=== PATIENT | female | born 1950 | race Caucasian/White ===

== ENCOUNTER 2017-11-15 03:04 | Outpatient (CLI) | payer BC, SELFPAY ==
[2017-11-15 08:41] LABS: ALT 55 U/L (12-78); AST 45 U/L (15-37); Albumin 3.5 g/dL (3.4-5.0); Alkaline Phosphatase 97 U/L (46-116); Anion Gap 6.3 mmol/L (3-11); BUN 10 mg/dL (7-18); Bilirubin, Total 0.5 mg/dL (0.2-1.0); CO2 31.7 mmol/L (21.0-32.0); CREATININE 0.85 mg/dL (0.55-1.02); Calcium 8.3 mg/dL (8.5-10.1); Chloride 106 mmol/L (98-107); Cholesterol 206 mg/dL (50-200); Glucose 95 mg/dL (70-100); HDL Cholesterol 63 mg/dL (40-60); LDL CHOLESTEROL 131 mg/dL (<100); Potassium 4.3 mmol/L (3.5-5.1); Sodium 144 mmol/L (136-145); TSH (W/Ref FT4) 3.03 uIU/mL (0.358-3.74); Total Protein 6.7 g/dL (6.4-8.2); Triglyceride 113 mg/dL (30-150)
== END 2017-11-15 03:24 ==
PROVIDERS: PCP Family Medicine; Visit Provider Family Medicine
DX: Z00.00 Encounter for general adult medical examination without abnormal findings (principal); Z13.228 Encounter for screening for other metabolic disorders; Z13.29 Encounter for screening for other suspected endocrine disorder; Z13.220 Encounter for screening for lipoid disorders; F32.89 Other specified depressive episodes
CPT/HCPCS: 36415; 80053; 80061; 83721; 84443

== ENCOUNTER 2017-12-31 09:38 | Outpatient (REF) | payer BC, SELFPAY ==
[2018-01-01 11:35] LABS: Campylobacter PCR SEE COMMENTS; Salmonella PCR SEE COMMENTS; Shiga Toxin PCR SEE COMMENTS; Shigella/Enteroinvasive Ecoli SEE COMMENTS
== END 2017-12-31 09:58 ==
LOC: LBN 09:38
PROVIDERS: PCP Family Medicine; Visit Provider Family Medicine
DX: B80 Enterobiasis (principal); L29.0 Pruritus ani
CPT/HCPCS: 87505; 87177

== ENCOUNTER 2018-02-19 11:51 | Day surgery (SDC) | payer BC, SELFPAY ==
[2018-02-19] MEDS: Lactated Ringers 1,000 ML 30 ML IV (12:02)
[2018-02-19 12:10] VITALS: BP 135/78; PULSE 67; RESP 16; TEMP 36.4; O2SAT 100
--- NOTE | 2018-02-19 14:30 | W.PM.DSUDISC ---
Discharge Plan Disposition Patient Disposition: HOME Condition: Stable Discharge Details Reason For Visit: pinworms Attending Provider: Mo Lantigua III Primary Care Provider: Priti Farrar Home Meds and New Rx's Prescriptions: Continued alprazolam [Xanax] 0.5 mg tablet 0.5 mg PO HS RF: 0 bisacodyl [Dulcolax (bisacodyl)] 5 mg tablet,delayed release (DR/EC) 10 mg PO BID Qty: 4 RF: 0 polyethylene glycol 3350 [Miralax] 17 gram/dose powder 255 g PO ONCE Qty: 255 RF: 0 multivitamin 1 EACH tablet 1 ea PO DAILY RF: 0 cetirizine [Zyrtec] 10 MG tablet 10 mg PO Q12H PRN PRNRF: 0 ProAir HFA 8.5 GM HFA aerosol inhaler 2 puff Inhalation QID PRNQty: 1 RF: 4 fluticasone 16 GM spray,suspension 2 spray NS BID PRNQty: 3 RF: 12 Discharge Instructions Activity:: Activity as Tolerated Diet:: As Tolerated DS: Diagnosis Discharge Diagnosis (1) Pinworm disease: Status: Acute
--- NOTE | 2018-02-19 14:32 | W.PM.OP ---
Date of service: 02/19/18 Time of Service: 14:32 Operative Note DATE OF PROCEDURE: 02/19/18 PRE-OP DIAGNOSIS: pinworms POST-OP DIAGNOSIS: same PROCEDURE: colonoscopy SURGEON: Mo Lantigua III ASSISTING SURGEON: Diana Soto ANESTHESIA: MAC ESTIMATED BLOOD LOSS: 0 COMPLICATIONS: None Patient was transported to: PACU Patient's condition: stable Findings: diverticulosis Procedure Description: after informed consent was obtained the patient was taken to the procedure room and placed in a left decubitous position. Monitors were applied and a time out was done. The patients name, date of , procedure, allergies to medications and metal in their body was reviewed. The patient was then sedated. Once sedated and comfortable a rectal exam was done. External exam was normal. Internal exam revealed a normal sphincter tone and no palpable masses. The scope was then introduced and retrofelexed. No internal hemorrhoids were identified. The scope was then advanced to the cecum moderate difficulty. The TI and appendiceal orifice were identified. The prep was adiquate right. The scope was then slowly retracted over CBC 6 minutes back into the rectum. 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 The scope was removed and the patient was woken up and taken back to Same day surgery in stable condition. The patient tolerated the procedure well and there were no immediate complications. Follow up: The patient should follow up in 10 years unless they develop changes in bowel habits or other new gastrointestinal complaints.
[2018-02-19 15:00] VITALS: BP 129/67; PULSE 64; RESP 16; TEMP 36.1; O2SAT 100
--- NOTE | 2018-02-20 12:06 | W.PM.OP ---
Date of service: 02/19/18 Operative Note DATE OF PROCEDURE: 02/19/18 PRE-OP DIAGNOSIS: pinworms POST-OP DIAGNOSIS: same PROCEDURE: colonoscopy After informed consent was obtained the patient was taken to the procedure room and placed in a left decubitous position. Monitors were applied and a time out was done. The patients name, date of , procedure, allergies to medications and metal in their body was reviewed. The patient was then sedated. Once sedated and comfortable a rectal exam was done. External exam was normal. Internal exam revealed a normal sphincter tone and no palpable masses. The prostate []. The scope was then introduced and retrofelexed. no internal hemorrhoids were identified. The scope was then advanced to the cecum moderate difficulty. The TI and appendiceal orifice were identified. The prep was adequate. The scope was then slowly retracted over 6 minutes back into the rectum. there was no pathology seen and no worms. The scope was removed and the patient was woken up and taken back to Same day surgery in stable condition. The patient tolerated the procedure well and there were no immediate complications. case dw pt post op Follow up: The patient should follow up in 10 years unless they develop changes in bowel habits or other new gastrointestinal complaints. SURGEON: Mo Lantigua III ANESTHESIA: MAC ESTIMATED BLOOD LOSS: 0 Patient was transported to: PACU Patient's condition: stable Implants: colonoscopy
== END 2018-02-19 15:14 | disposition home or self-care (01) ==
PROVIDERS: PCP Family Medicine; Visit Provider Surgery
PROC: 0DJD8ZZ Inspection of Lower Intestinal Tract, Via Natural or Artificial Opening Endoscopic (ICD-10-PCS; CPT 45378; principal; 2018-02-19 13:00)
DX: B80 Enterobiasis (principal)
CPT/HCPCS: 45378; J2250

== ENCOUNTER 2018-02-22 08:40 | Outpatient (REF) | payer BC, SELFPAY | END 2018-02-22 09:00 | LOC: LBN 08:40 | PROVIDERS: PCP Family Medicine; Visit Provider Physical Therapy Assistant | DX: B80 Enterobiasis (principal) | CPT/HCPCS: 87172 ==

== ENCOUNTER 2018-03-31 01:04 | Outpatient (CLI) | payer BC, SELFPAY ==
--- NOTE | 2018-03-31 10:30 | DI.MAMMO_ITS ---
SYMPTOM/DIAGNOSIS: SCREENING, Z12.31 MAMMOGRAMS: Mammograms were interpreted according to the usual protocol including computer analysis with CAD system, tomosynthesis and C view imaging. Comparison with prior examinations. Breast density C. No suspicious masses or microcalcifications are seen. There is no definite evidence of malignancy. IMPRESSION: Negative mammogram. Routine screening is recommended. Category I. MQSA ASSESSMENT OF FINDINGS: Negative. Category 1. Patient will receive a letter notifying them of these results. Bi-RADS category C. The breasts are heterogeneously dense, which may obscure small masses.
== END 2018-03-31 01:24 ==
PROVIDERS: PCP Family Medicine; Visit Provider Nurse Practitioner Family
DX: Z12.31 Encounter for screening mammogram for malignant neoplasm of breast (principal)
CPT/HCPCS: 77063; 77067

== ENCOUNTER 2019-07-15 01:52 | Outpatient (CLI) | payer BC, SELFPAY ==
--- NOTE | 2019-07-15 08:00 | DI.MAMMO_ITS ---
EXAM: MG MAMMO SCREENING CLINICAL HISTORY: screening TECHNIQUE: Mammograms were interpreted according to the usual protocol including computer analysis w [employer] CAD system, tomosynthesis and C-view imaging. COMPARISON: FINDINGS: The breasts are heterogeneously dense. No dominant mass or clumped microcalcification is identified in either breast. Current examination is compared with previous examinations including March 2018 and there has been no gross interval change in appearance in comparison with the previous examinatio ns. IMPRESSION: No specific evidence of malignancy at this time. Routine screening examinations are suggested yearly intervals in this age group according to the ACS ACR guidelines. BI-RADS Cat 1 - Negative: Breast Density - Category C - Heterogeneously dense
== END 2019-07-15 02:12 ==
PROVIDERS: PCP Family Medicine; Visit Provider Nurse Practitioner Family
DX: Z12.31 Encounter for screening mammogram for malignant neoplasm of breast (principal)
CPT/HCPCS: 77063; 77067

== ENCOUNTER 2020-01-12 11:23 | Outpatient (CLI) | payer BC, SELFPAY ==
--- NOTE | 2020-01-12 09:15 | DI.RAD_ITS ---
EXAM: XR SHOULDER LT COMPLETE 2+V CLINICAL HISTORY: left shoulder pain TECHNIQUE: COMPARISON: No exams were available for comparison FINDINGS: Two views were obtained. Cartilaginous joint space of the glenohumeral joint may be slightly narrowe d. There are mild marginal osteophytes of the glenoid and humeral head. Mild marginal osteophytes a lso present at AC joint. No other bony or soft tissue abnormality seen. IMPRESSION: Mild degenerative changes as described above. RADIATION DOSE DELIVERED: Total DLP Total DLP
== END 2020-01-12 11:43 ==
PROVIDERS: PCP Family Medicine; Referring Provider Family Medicine; Visit Provider Orthopaedic Surgery
DX: M19.012 Primary osteoarthritis, left shoulder (principal)
CPT/HCPCS: 73030

== ENCOUNTER 2020-05-03 02:13 | Outpatient (CLI) | payer MEDICARE, SELFPAY ==
--- NOTE | 2020-05-03 08:15 | DI.DEXA_ITS ---
EXAM: XR DEXA BONE DENSITY W/WO PAULA CLINICAL HISTORY: osteoporosis,OSTEOPENIA, M85.80 TECHNIQUE: Routine DEXA evaluation of the lumbar spine, hip, or forearm. COMPARISON: No exams were available for comparison FINDINGS: Performed on a Hologic unit. Lateral image: No compression fracture evident. Lumbar Spine total T-score: -0.8 Hip total T-score:-1.1. Independent reading at the femoral neck level yields a T-score of -1.5 Forearm total T-score: -1.1 IMPRESSION: Bone mineral density measures in the osteopenia range. Fracture risk is moderate. Note: Any spine fracture indicates 5x risk for subsequent spine fracture and 2x risk for subsequent h ip fracture. World Health Organization criteria for BMD interpretation classify patients: Normal...... T- Score at or above -1.0 Osteopenic... T- Score between -1.0 and -2.5 Osteoporosis... T-Score at or below -2.5
== END 2020-05-03 02:33 ==
PROVIDERS: PCP Family Medicine; Visit Provider Family Medicine
DX: M85.88 Other specified disorders of bone density and structure, other site (principal)
CPT/HCPCS: 77080

== ENCOUNTER → 2020-05-05 08:25 | Outpatient (BNVA) | payer MEDICARE, SELFPAY | PROVIDERS: PCP Family Medicine; Referring Provider Family Medicine; Visit Provider Physician Assistant | DX: M75.82 Other shoulder lesions, left shoulder (principal) | CPT/HCPCS: 99213 ==

== ENCOUNTER 2020-05-11 09:34 | Outpatient (CLI) | payer MEDICARE, SELFPAY ==
--- NOTE | 2020-05-11 08:15 | DI.MRI_ITS ---
EXAM: MR UPPER JOINT LT WO CLINICAL HISTORY: PAIN, TENDONITIS LT ROTATOR CUFF, M75.82 TECHNIQUE: Multiplanar multisequence MRI of the shoulder was performed. COMPARISON: CR XR SHOULDER LT COMPLETE 2+V from 01/12/2020 FINDINGS: MARROW:There is no evidence of fracture, Hill-Sachs deformity, nor ominous osseous lesions. ROTATOR CUFF MECHANISM: AC JOINT/ACROMIUM: There are minimal degenerative changes in the AC joint. Undersurface of the acrom ion is flat. No prominent undersurface focus nor enthesopathic findings at the coracoacromial ligame nt.. However, there is some fluid in the subacromial bursa noted. There is no evidence of os acromiale. Supraspinatus: Focal area of increased signal in the supraspinatus tendon just above the greater tube rosity which has more the appearance of partial thickness tearing than full-thickness tear. No retra ction of the musculotendinous junction. No muscle atrophy. Infraspinatus: Mild increased signal at insertional aspect. No high-grade tear. No muscle atrophy. Teres Minor: Intact. No evidence of tear nor muscle atrophy. Subscapularis/anterior cuff: Intact. No abnormal signal at the level of the multipennate insertional fibers. No significant tear nor atrophy. BICEPS TENDON: Exhibits normal position within the intertubercular groove. No evidence of tear. Minimal fluid in the tendon. No prominent tenosynovitis. LABRUM: Thin line of fluid signal in the superior labrum at the biceps insertion site, possibly just let representing the anatomic recess at this level. Small posterior labrum. Mild increased signal i n the anterior labrum. Inferior labrum appears intact. No abnormal intraosseous signal in the osseo us glenoid. No degenerative subarticular cysts. GLENOHUMERAL JOINT: Minimal degenerative changes. Some fluid is seen in the subcoracoid recess. No loose intra-articular body. No degenerative subarticular cysts. No evidence of capsular tear. The i nferior glenohumeral ligament is intact. QUADRILATERAL SPACE: No evidence of mass in the region of the axillary nerve and dorsal circumflex hu meral vessels. Visualized triceps muscle at this level appears unremarkable. IMPRESSION: 1. There is a focus of signal abnormality in the supraspinatus tendon at the foot pad insertion site which has the appearance of focal tendinitis with possible partial articular side surface tearing. T his area of signal abnormality is 5 millimeters wide on the coronal images, 9 millimeters AP measurem ent and traverses 3/4 of the tendon thickness. There is no retraction musculotendinous junction or m uscle atrophy. However, there is fluid in the subacromial-subdeltoid bursa. However I do not see a full-thickness tear and therefore findings are probably partial-thickness tear plus bursitis, more so than a full-thickness tear. 2. Mild infraspinatus findings. Anterior cuff/subscapularis appears unremarkable 3. Biceps tendon is intact. Mild findings doubtful for prominent tear is. No evidence of paralabral cyst. 4. Minimal degenerative changes in the AC joint and glenohumeral joint. Is some increased fluid is noted in the subcoracoid recess. There is no loose intra-articular body evident. DATA REPOSITORY:
== END 2020-05-11 09:54 ==
PROVIDERS: PCP Family Medicine; Visit Provider Student in an Organized Health Care Education/Training Program
DX: M25.512 Pain in left shoulder (principal); M75.82 Other shoulder lesions, left shoulder; M19.012 Primary osteoarthritis, left shoulder
CPT/HCPCS: 73221

== ENCOUNTER 2020-06-09 01:35 | Outpatient (CLI) | payer MEDICARE, SELFPAY ==
[2020-06-09] MEDS: Omnipaque 300 MG/ML 10 ML BTL IJ (14:19)
[2020-06-09] MEDS: Bupivacaine 0.5% Pres-Free 10 ML VIAL 5 ML IJ (14:20)
[2020-06-09] MEDS: methylPREDNISolone ACETATE 80 MG/ML VIAL IM (14:21)
--- NOTE | 2020-06-09 14:21 | DI.RAD_ITS ---
Exam(s) RF JOINT INJECTION FLUORO GUID EXAM: RF JOINT INJECTION FLUORO GUID CLINICAL HISTORY: L SHOULDER INJ UNDER FLUORO,TENDONITIS AND PAIN LT SHOULDER,M75.92 TECHNIQUE: Fluoroscopy provided. Radiologist not present. CONTRAST MATERIAL: None COMPARISON: No exams were available for comparison FINDINGS: Fluoroscopy was provided during left shoulder injection. Submitted image(s) reveal needle tip at the superomedial aspect of the humeral head. There is some i ntra-articular contrast noted. Please refer to the procedure report for complete details. Cumulative Dose: Ka,r=0.494 mGy IMPRESSION: RADIATION DOSE DELIVERED:
--- NOTE | 2020-06-09 15:54 | OPPNE_ITS ---
Date of service: 06/09/20 Time of Service: 14:12 Procedure Note Date of procedure: 06/09/20 Procedure: Left Shoulder Injection Surgeon/Proceduralist/Physician: Urbano Reid Procedure Diagnosis: Left Shoulder Pain and Adhesive Capsulitis Procedure Indications: Alis has had persistent pain of the LEFT shoulder. Noninvasive measures have been tried. To serve as both diagnostic and therapeutic, an injection under fluoroscopy was recommended. I had discussed the risks of the procedure and the patient elected to proceed. Procedure Description: Alis was greeted in the flouroscopy room. The correct side was identified and the consent was reviewed with the patient and signed. The patient was then placed in the supine position on the fluoroscopy table. The LEFT shoulder was then prepped with Chloraprep. The anterior injection starting point was identiifed by bony landmarks and fluoroscopy. The skin and soft tissue in the tract of the injection was anesthetized with 1% Lidocaine. A spinal needle was then inserted deep into the shoulder joint at the level of the recess between the glenoid and superior humeral head. A small amount of Omnipaque solution was injected to confirm intraarticular placement. Once confirmed, the shoulder was injected with 4cc of 0.5% Bupivicaine and 80mg of Depo-Medrol. A bandaid was placed on the injection site. The patient tolerated the procedure well and noted improvement in pre- injection pain and motion.
== END 2020-06-09 01:55 ==
PROVIDERS: PCP Family Medicine; Visit Provider Student in an Organized Health Care Education/Training Program
DX: M25.512 Pain in left shoulder (principal); M75.02 Adhesive capsulitis of left shoulder
CPT/HCPCS: 20610; 77002; J1040

== ENCOUNTER 2020-07-19 02:55 | Outpatient (CLI) | payer MEDICARE, SELFPAY ==
--- NOTE | 2020-07-19 11:40 | DI.MAMMO_ITS ---
Exam(s) MAMMO SCREENING EXAM: MAMMO SCREENING CLINICAL HISTORY: screening TECHNIQUE: Bilateral full field digital CC and MLO mammographic images were obtained with 3D tomosyn thesis and utilizing computer aided detection (CAD). COMPARISON: Available for comparison. FINDINGS: Masses/Architectural Distortion: None seen. Microcalcifications: No suspicious pleomorphic-type are seen. Skin Thickening/Nipple Retraction: None. IMPRESSION: 1. No significant interval change with no specific features of malignancy noted. 2. Unless there is more urgent need, screening mammography is recommended, as per [employer] guidelines. BI-RADS Category 1 - Negative Breast Density - Category C - Heterogeneously dense Breast density category C or D implies that the patient has dense breast tissue. Dense breast tissue is very common and is not abnormal but dense breast tissue can make it harder to find cancer on a ma mmogram. Also, dense breast tissue may increase their breast cancer risk. This information about the result of the mammogram report was provided to the patient to raise their awareness. Use this report when you speak with the patient about their risks for breast cancer, which includes their family hist ory. At that time, you may recommend for more screening tests (Ultrasound or MRI) as they might be us eful based on their risk. A negative radiographic report should not delay biopsy if a dominant or clinically suspicious mass is present. Up to ten percent of cancers are not identified on mammography. A negative report may reinforce clinical impression. Adenosis and dense breasts may obscure an underlying neoplasm. False positive reports average 6 to 10%. Patient will receive a letter notifying them of these results.
== END 2020-07-19 03:15 ==
PROVIDERS: PCP Family Medicine; Visit Provider Nurse Practitioner Family
DX: Z12.31 Encounter for screening mammogram for malignant neoplasm of breast (principal)
CPT/HCPCS: 77063; 77067

== ENCOUNTER 2020-12-13 02:28 | Outpatient (CLI) | payer MEDICARE, SELFPAY ==
[2020-12-13 11:06] LABS: ALT 42 U/L (14-59); AST 26 U/L (15-37); Albumin 3.9 g/dL (3.4-5.0); Alkaline Phosphatase 91 U/L (46-116); Anion Gap 6.7 mmol/L (3-11); BUN 14 mg/dL (7-18); Bilirubin, Total 0.5 mg/dL (0.2-1.0); CO2 31.3 mmol/L (21.0-32.0); Calcium 9.3 mg/dL (8.5-10.1); Calculated LDL 159 mg/dL (<100); Chloride 104 mmol/L (98-107); Cholesterol 254 mg/dL (<200); Estimated GFR 55.14 (mL/min/1.73m2); Glucose 86 mg/dL (74-106); HDL Cholesterol 63 mg/dL (40-60); Potassium 4.4 mmol/L (3.5-5.1); Sodium 142 mmol/L (136-145); Total Protein 7.7 g/dL (6.4-8.2); Triglyceride 163 mg/dL (<150)
== END 2020-12-13 02:29 | disposition home or self-care (01) ==
LOC: LBO 02:28
PROVIDERS: PCP Family Medicine; Visit Provider Family Medicine
DX: E78.00 Pure hypercholesterolemia, unspecified; R00.2 Palpitations; G47.00 Insomnia, unspecified
CPT/HCPCS: 36415; 80053; 80061

== ENCOUNTER → 2022-01-01 01:37 | Outpatient (CLI) | payer MEDICARE, SELFPAY ==
--- NOTE | 2022-01-01 12:53 | DI.MAMMO_ITS ---
Exam(s) MAMMO SCREENING EXAM: MAMMO SCREENING CLINICAL HISTORY: screening,z12.39 TECHNIQUE: Mammograms were interpreted according to the usual protocol including computer analysis w [employer] CAD system, tomosynthesis and C-view imaging. COMPARISON: 2012 through 2020 FINDINGS: The breasts are composed of heterogeneously dense fibroglandular densities, Breast Density category C . No suspicious masses or suspicious microcalcifications are seen. No skin thickening or abnormal axillary lymph nodes are seen. There has been no significant change from prior exams. IMPRESSION: BI-RADS Category 1, Negative mammogram. Yearly screening mammography is recommended. Breast Density Category C, heterogeneously Dense. The mammogram demonstrates the patient's breast tissue is dense. Dense breast tissue is very common a nd is not abnormal but dense breast tissue can make it harder to find cancer on a mammogram. Also, de nse breast tissue may increase breast cancer risk. This information about the result of the mammogram report was provided to the patient to raise their awareness. Use this report when you speak with the patient about their risks for breast cancer, which includes their family history. At that time, you may recommend additional screening tests (Ultrasound or MRI) as they might be useful based on their r isk. A negative radiographic report should not delay biopsy if a dominant or clinically suspicious mass is present. Up to ten percent of cancers are not identified on mammography. A negative report may reinforce clinical impression. Adenosis and dense breasts may obscure an underlying neoplasm. False positive reports average 6 to 10%.
== END ==
PROVIDERS: PCP Family Medicine; Visit Provider Family Medicine
DX: Z12.31 Encounter for screening mammogram for malignant neoplasm of breast (principal); R92.8 Other abnormal and inconclusive findings on diagnostic imaging of breast
CPT/HCPCS: 77063; 77067

== ENCOUNTER → 2022-02-26 09:22 | Outpatient (BNVA) | payer MEDICARE, SELFPAY | PROVIDERS: PCP Family Medicine; Referring Provider Family Medicine; Visit Provider Student in an Organized Health Care Education/Training Program | DX: M72.0 Palmar fascial fibromatosis [Dupuytren] (principal) | CPT/HCPCS: 99213 ==

== ENCOUNTER 2023-01-25 02:30 | Outpatient (CLI) | payer MEDICARE, SELFPAY ==
[2023-01-25 13:38] LABS: HCT 43.4 % (36.0-46.0); HGB 14.2 g/dL (11.2-15.7); MCH 31.7 pg (27.0-33.0); MCHC 32.7 % (32.0-36.0); MCV 97 fL (80-95); MPV 9.9 fL (8.0-11.0); Platelet Count 217 10^3/uL (130-400); RBC 4.48 10^6/uL (3.93-5.22); RDW 12.6 % (11.7-14.6); RDW-SD 45.2 fL; WBC 6.98 10^3/uL (4.4-10.8)
[2023-01-25 14:11] LABS: ALT 33 U/L (14-59); AST 24 U/L (15-37); Albumin 3.6 g/dL (3.4-5.0); Alkaline Phosphatase 91 U/L (46-116); Anion Gap 6.5 mmol/L (3-11); BUN 16 mg/dL (7-18); Bilirubin, Total 0.3 mg/dL (0.2-1.0); CO2 30.5 mmol/L (21.0-32.0); CREATININE 1.2 mg/dL (0.55-1.02); Calcium 8.9 mg/dL (8.5-10.1); Calculated LDL 140 mg/dL (<100); Chloride 105 mmol/L (98-107); Cholesterol 252 mg/dL (<200); Glucose 114 mg/dL (74-106); HDL Cholesterol 57 mg/dL (40-60); Sodium 142 mmol/L (136-145); TSH (W/Ref FT4) 3.22 uIU/mL (0.36-3.74); Total Protein 7.4 g/dL (6.4-8.2); Triglyceride 277 mg/dL (<150)
== END 2023-01-25 02:31 | disposition home or self-care (01) ==
PROVIDERS: PCP Family Medicine; Visit Provider Nurse Practitioner Family
DX: F32.9 Major depressive disorder, single episode, unspecified (principal); G47.00 Insomnia, unspecified; M79.7 Fibromyalgia; Z00.00 Encounter for general adult medical examination without abnormal findings; E78.5 Hyperlipidemia, unspecified
CPT/HCPCS: 36415; 80053; 80061; 85027; 84443

== ENCOUNTER → 2023-02-08 01:53 | Outpatient (CLI) | payer MEDICARE, SELFPAY ==
--- NOTE | 2023-02-08 08:30 | DI.MAMMO_ITS ---
Exam(s) MAMMO SCREENING EXAM: MAMMO SCREENING CLINICAL HISTORY: screening, Z12.39. TECHNIQUE: Bilateral full field digital CC and MLO mammographic images were obtained with 3D tomosyn thesis and utilizing computer aided detection (CAD). COMPARISON: Prior mammograms were reviewed. FINDINGS: There has been no significant change in the appearance and distribution of the fibroglandular tissue. There are no new spiculated masses nor malignant appearing microcalcification groups. There is no significant architectural distortion nor skin thickening-retraction. IMPRESSION: No radiographic evidence of malignancy. BI-RADS Category 1 - Negative Breast Density - Category B - Scattered areas of fibroglandular density Breast density Category C or D implies that the patient has dense breast tissue. Dense breast tissue can make it harder to find cancer on a mammogram. Dense breast tissue is also associated with an incr eased risk of breast cancer. This information about the result of the mammogram report was provided to the patient to raise their awareness. Use this report when you speak with the patient about their risks for breast cancer, which includes their family history. At that time, you may recommend additional screening tests (Ultrasoun d or MRI) as these tests may add significant information. A negative radiographic report should not delay biopsy if a dominant or clinically suspicious mass is present. Up to ten percent of cancers are not identified on mammography. A negative report may reinforce clinical impression. Adenosis and dense breasts may obscure an underlying neoplasm. False positive reports average 6 to 10%. Patient will receive a letter notifying them of these results.
== END ==
PROVIDERS: PCP Family Medicine; Visit Provider Nurse Practitioner Family
DX: Z12.31 Encounter for screening mammogram for malignant neoplasm of breast (principal)
CPT/HCPCS: 77063; 77067

== ENCOUNTER 2023-08-05 06:26 | Emergency (ER) | payer MEDICARE, SELFPAY ==
[2023-08-05] VITALS (14 sets, daily range): BP systolic 101–154; BP diastolic 50–74; PULSE 56–88; RESP 18; TEMP 36.8; O2SAT 95–98
--- NOTE | 2023-08-05 06:53 | W.ED.GENAD ---
Discharge Plan Discharge Details Chief Complaint: Abd Prob Clinical Impression: Abdominal pain Primary Care Provider: Priti Farrar ED Provider: Joesph Esteban Home Meds and New Rx's Prescriptions: No Action fluticasone propionate 50 mcg/actuation spray,suspension 2 spray NS BID PRN (Reason: allergy symptoms) Qty: 3 6RF albuterol sulfate [ProAir HFA] 90 mcg/actuation HFA aerosol inhaler 2 puff Inhalation QID PRN (Reason: bronchospasm) Qty: 8.5 4RF estradiol [Vagifem] 10 mcg tablet 10 mcg VG DAILY Qty: 24 4RF Rx Instructions: use one tab in vagina at bedtime twice weekly multivitamin 1 EACH tablet 1 ea PO DAILY cetirizine [Zyrtec] 10 MG tablet 10 mg PO Q12H PRN PRN alprazolam 0.5 mg tablet 0.5 mg PO QHS PRN (Reason: sleep) Qty: 90 3RF HPI General Mode of arrival: ambulatory. Date/Time Provider Initiated Documentation: 08/05/23 06:52. Limitations to Documentation: no limitations. Information obtained by: patient. HPI Narrative: Patient presents to ED with left-sided abdominal pain which began yesterday morning. It is worsened throughout the night. It is constant but waxes and wanes in intensity with at times very sharp stabbing pain. Pain seems to radiate from the left flank into the abdomen and across to the right side. She has nausea but no vomiting. She has had some episodes of diarrhea. She has had no fever that she is aware of but has had some chills. She has no urinary symptoms. She has no back pain. She denies any chest pain, shortness of breath, cough. She does have known diverticulosis but has never had diverticulitis. She has had hysterectomy but still has both ovaries. No other abdominal surgeries other than C-sections. No prior kidney stones. Related Data Home Medications Medication Instructions Recorded Confirmed multivitamin 1 ea PO DAILY 08/25/12 01/21/23 cetirizine 10 mg tablet (Zyrtec) 10 mg PO Q12H PRN PRN 09/23/14 01/21/23 albuterol sulfate 90 mcg/actuation 2 puff inhalation QID PRN 12/06/20 01/21/23 aerosol inhaler (ProAir HFA) bronchospasm #8.5 grams fluticasone propionate 50 2 spray NS BID PRN allergy 12/11/21 01/21/23 mcg/actuation nasal symptoms #3 grams spray,suspension alprazolam 0.5 mg tablet 0.5 mg PO QHS PRN sleep #90 tabs 05/16/22 01/21/23 estradiol 10 mcg vaginal tablet 10 mcg vaginal DAILY #24 tabs 01/21/23 01/21/23 (Vagifem) Previous Rx's Medication Instructions Recorded albuterol sulfate 90 mcg/actuation 2 puff inhalation QID PRN 12/06/20 aerosol inhaler (ProAir HFA) bronchospasm #8.5 grams fluticasone propionate 50 2 spray NS BID PRN allergy 12/11/21 mcg/actuation nasal symptoms #3 grams spray,suspension alprazolam 0.5 mg tablet 0.5 mg PO QHS PRN sleep #90 tabs 05/16/22 estradiol 10 mcg vaginal tablet 10 mcg vaginal DAILY #24 tabs 01/21/23 (Vagifem) Allergies Allergy/AdvReac Type Severity Reaction Status Date / Time bee venom protein (honey bee) Allergy Intermediate Swelling Verified 08/05/23 06:34 amoxicillin trihydrate AdvReac Severe GI UPSET Verified 08/05/23 06:34 [From Augmentin] potassium clavulanate AdvReac Severe GI UPSET Verified 08/05/23 06:34 [From Augmentin] prednisone AdvReac Intermediate TACHYCARDIA Verified 08/05/23 06:34 General Stated Complaint: Abd Prob SHRAVAN: 3 Review of Systems Narrative: Per HPI Exam Narrative Exam Narrative: Const: WDWN elderly female in NAD. VS per triage. HEENT: NC/AT. Normal facial exam. Neck: Supple. Trachea midline. Lungs: Normal respiratory effort. Lungs are clear. Cor: RRR without murmur. Good radial pulses. GI: Soft/ND. Markedly tender left flank/LLQ with voluntary guarding. Back: No CVAT Neuro: A+O x 3. Normal speech, mentation, gait. Cranial nerves II - XII grossly intact. No gross motor or sensory deficit. Ext: No C/C/E. Course Vital Signs Vital signs: Vital Signs Temperature 98.2 F 08/05/23 06:30 Pulse 88 08/05/23 06:30 Respiratory Rate 18 08/05/23 06:30 Blood Pressure 154/64 H 08/05/23 06:30 Pulse Oximetry 97 08/05/23 06:30 Temperature 98.2 F 08/05/23 06:30 Temperature Source Skin 08/05/23 06:30 Pulse 88 08/05/23 06:30 Respiratory Rate 18 08/05/23 06:30 Respiratory Effort Normal 08/05/23 06:32 Blood Pressure 154/64 H 08/05/23 06:30 Blood Pressure Position Sitting 08/05/23 06:30 Pulse Oximetry 97 08/05/23 06:30 Oxygen Delivery Method Room Air 08/05/23 06:30 Oxygen Flow Rate 0 08/05/23 06:30 Medical Decision Making Patient presenting to ED with left flank and left lower quadrant pain. She is quite tender in this area with voluntary guarding. She has no CVAT. She has nausea and some diarrhea, no vomiting. She is afebrile here. Differential does include kidney stone, diverticulitis, colitis. Doubt perforation as she has no generalized peritonitis. IV established and laboratory studies sent. Urinalysis ordered. Fluids, ondansetron, morphine given for symptoms. CT imaging not available at this time. Will obtain flat and upright abdomen with chest to evaluate for possible perforation. May ultimately need transfer for CT imaging if first does not become available this morning. Laboratory studies with a white count of 11.3, normal hemoglobin, normal chemistries. Total bilirubin slightly elevated at 1.2 but LFTs and lipase normal. She has no right upper quadrant tenderness. Urinalysis is negative. Currently undergoing abdominal x-ray but if no free air detected will need CT scan. Signed out to oncoming ED provider pending x-ray and either CT here if it has been repaired or transfer to another facility for imaging. I have already discussed possibility of transfer with patient who is agreeable to same. Lab Data Lab results reviewed: Yes I reviewed the patient's lab results. Lab results narrative: Unremarkable PFSH All Active Problems (Updated 08/05/23 @ 07:39 by Joesph Esteban MD) Abdominal pain (Acute) Postnasal drip (Acute 07/09/13) Throat clearing (Acute) 07/09/13 Dupuytren's contracture of left hand (Acute) Tendonitis of left rotator cuff (Acute) Subacromial injection: 01/12/2020 Foot pain (Acute) Acquired absence of both cervix and uterus (Acute 09/03/11) Closed fracture of foot (Acute) Compound nevus of multiple sites (Acute) Non-neoplastic nevus (Acute) Palpitations (Acute) Throat clearing (Acute 07/09/13) Primary fibromyalgia syndrome (Chronic) adult life 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; RIGHT HAND, 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 Neck pain (Chronic 01/10/03) C5-6 DDD Migraine (Chronic) 2-6 per month; right side aura, left migraine Mass of finger of right hand (Chronic) 09/13/15 ULNAR ASPECT, RIGHT RING FINGER Insomnia (Chronic) Depressive disorder (Chronic) 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 History of throat surgery History of gynecologic surgery cervical procedure S/P laparoscopic hysterectomy 02/12/88 menorrhagia H/O arthroscopy of knee 02/12/88 Acquired absence of both cervix and uterus 09/03/11 H/O excision of mass 09/13/15 right ring finger section 1976,1980,1981 Excision, Skin Mass (09/13/15) RT INDEX FINGER-PALMAR FIBROMATOSIS/DR. KNOX Family History (Updated 12/07/20 @ 07:47 by [place]) Mother , age 85 Alzheimer's dementia Breast cancer x 2 Father , age 79 Essential hypertension Stroke Prostate cancer Melanoma Hyperlipidemia Hypertension Sister Diabetes Essential hypertension Breast cancer lumpectomy Skin cancer Sister Diabetes Essential hypertension Leukemia Cirrhosis of liver Sister Diabetes Hyperlipidemia Hypertension Brother Diabetes Essential hypertension Liver cancer Hyperlipidemia Brother , age 57 Pancreatic cancer Diabetes Hyperlipidemia Hypertension Brother Essential hypertension Maternal Grandfather , age 84 Heart disease Paternal Grandfather , age 88 Stroke Maternal Grandmother , age 88 Diabetes Heart disease Paternal Grandmother , age 77 Diabetes Stroke Daughter Oligodendroglioma Basal cell carcinoma Daughter No problems noted. Daughter Asthma Oligodendroglioma Re-growth/surgery 11/02/20 Social History Smoking/Tobacco Use Status: Never Second Hand Exposure: No Smoking risk assessment performed?: Yes Alcohol Intake: current Alcohol Intake frequency: 0-2 drinks per day Alcohol type: wine Drug use: Never Substance use type: does not use Adopted: No Caregiver/Support person: No Foster care: No Household members: spouse Housing: house Number of Children: 3 number of grandchildren: 6 Communication Needs: None Education Level: high school Do you need help understanding health information?: Never current occupation: retired Pets and animals: No Sexually active: Yes Do you think of yourself as: straight/heterosexual Current gender identity: female What is your relationship status?: How often do you talk on the phone with friends or family?: three or more times per week How often do you get together with friends or relatives?: three or more times per week How often do you attend protestant or presybeterian services?: 1-3 times per year Do you belong to any clubs or organized social groups?: no Panel score (0-1 are the most socially isolated patients): 2 What type of physical activity do you participate in: walking, bicycling, other Details: light weights and yoga Duration: 15-30 minutes/day Frequency: 3-4 times per week Joselyn/Orthodox: Confucianism Special joselyn needs: No Agree to transfusion: Yes Seatbelt use: always Helmet use: Yes Helmet use: always Drive intox or ride w/intox reach lift truck driver: No Working smoke detector in home: Yes Carbon monox detector in home: Yes Firearms in home: Yes Firearms unloaded and locked: Yes Do you feel safe at home: Yes Do you feel safe in your relationship?: Yes Victim of physical abuse: No Victim of emotional abuse: No Victim of sexual abuse: No Would you like helpful sources: No
--- NOTE | 2023-08-05 07:00 | DI.RAD_ITS ---
Exam(s) XR ABDOMEN FLAT UPRIGHT EXAM: 2D digital imaging was performed. CLINICAL HISTORY: abdominal pain/tenderness. COMPARISON: No exams were available for comparison TECHNIQUE: Supine and upright views of the abdomen was performed. Two images were obtained. FINDINGS: LUNG BASES: There are interstitial infiltrates seen in the lung bases which may be chronic. Possibly of acute edema or pneumonitis cannot be excluded. Please correlate clinically. BOWEL GAS PATTERN: Nondistended. FREE AIR: None. CALCIFICATIONS: No radiopaque calcifications. OSSEOUS STRUCTURES: Normal for age. OTHER FINDINGS: None. IMPRESSION: 1. No evidence of an acute abdomen. 2. Mild interstitial prominence in the lung bases which may be chronic. Acute edema or pneumonia can not be excluded. Please correlate clinically. DATA REPOSITORY: RADIATION DOSE DELIVERED:
[2023-08-05 07:15] LABS: Abs Immature Grans 0.03 10^3/uL (0.0-0.06); Absolute Basophil Count 0.02 10^3/uL (0.0-0.2); Absolute Eosinophil Count 0.05 10^3/uL (0.0-0.7); Absolute Lymphocyte Count 1.61 10^3/uL (1.2-3.4); Absolute Monocyte Count 1.05 10^3/uL (0.1-0.8); Basophils % 0.2 %; Eosinophils % 0.4 %; HCT 45.7 % (36.0-46.0); HGB 14.8 g/dL (11.2-15.7); Immature Grans % 0.3 %; Lymphocytes % 14.3 %; MCH 31.7 pg (27.0-33.0); MCHC 32.4 % (32.0-36.0); MCV 98 fL (80-95); MPV 9.9 fL (8.0-11.0); Monocytes % 9.3 %; Neutrophils % 75.5 %; Platelet Count 192 10^3/uL (130-400); RBC 4.67 10^6/uL (3.93-5.22); RDW 12.5 % (11.7-14.6); WBC 11.29 10^3/uL (4.4-10.8)
[2023-08-05 07:18] LABS: Absolute Neutrophil Count 8.52 10^3/uL (1.2-6.7)
[2023-08-05 07:19] LABS: Bilirubin Negative (Negative); Blood Trace-intact (Negative); Clarity Clear (Clear); Glucose Negative (Negative); Ketones Negative (Negative); Leukocyte Esterase Negative (Negative); Nitrite Negative (Negative); Specific Gravity 1.015 (1.005-1.025); Urobilinogen 0.2 mg/dL (Up to 0.2)
[2023-08-05] MEDS: Lactated Ringers 1,000 ML 1000 ML IV (07:26)
[2023-08-05 07:27] LABS: Bacteria Negative HPF (Negative); C & S Indicated? No; Casts Negative LPF (Negative); Crystals Negative HPF (Negative); Epithelial Cells Few HPF (Negative); Mucus Trace (Negative); RBC 0-2 HPF (0-2); WBC Negative HPF (0-5)
[2023-08-05] MEDS: MORPHine 10 MG/ML VIAL 4 MG IVP (07:27)
[2023-08-05] MEDS: Ondansetron 4 MG/2 ML VIAL IVP (07:27)
[2023-08-05 07:34] LABS: ALT 26 U/L (14-59); AST 18 U/L (15-37); Albumin 3.5 g/dL (3.4-5.0); Alkaline Phosphatase 80 U/L (46-116); Anion Gap 6.9 mmol/L (3-11); BUN 7 mg/dL (7-18); CO2 30.1 mmol/L (21.0-32.0); Calcium 8.6 mg/dL (8.5-10.1); Chloride 102 mmol/L (98-107); Estimated GFR 60.23 (mL/min/1.73m2); Glucose 119 mg/dL (74-106); Lipase 21 U/L (16-77); Potassium 3.9 mmol/L (3.5-5.1); Sodium 139 mmol/L (136-145); Total Protein 7.2 g/dL (6.4-8.2)
--- NOTE | 2023-08-05 08:02 | ED.PROG_ITS ---
Date of service: 08/05/23 Time of Service: 08:18 Medical Decision Making Care assumed from off going provider. Patient is a 73-year-old female that presented with abdominal pain. At this time our CT scanner is not working and we are unable to complete the workup for this patient. Thus far her urinalysis and lab work are unremarkable. Her abdominal x-ray does not show signs of bowel obstruction or free air. Given her ongoing abdominal pain, the plan is to transfer her to another emergency department for CT imaging. 08 patient accepted for ED ED transfer to [facility] ED Dr Trujillo. Patient would like to go POV. Explained risks/ benefits of POV v ambulance, but I do believe the patient is clinically stable for POV transportation. Quality:SDOH Health Related Social Needs: No Data to Display Sign Out Sign Out Data: Sign Out Comment: Patient presenting with left-sided abdominal pain with significant tenderness. Laboratory studies are unremarkable. Abdominal x-ray pending but if no free air will require CT imaging. Have discussed possibility of transfer for imaging with patient. Last updated by Joesph Esteban MD at 08/05/23 07:40 Discharge Plan Disposition Patient Disposition: Transfer-Acute Inpatient Care Specific Acute Inpt Facility: Other Condition: Stable Discharge Details Clinical Impression: Abdominal pain Primary Care Provider: Priti Farrar ED Provider: Kirsten Chaudhry Home Meds and New Rx's Prescriptions: No Action fluticasone propionate 50 mcg/actuation spray,suspension 2 spray NS BID PRN (Reason: allergy symptoms) Qty: 3 6RF albuterol sulfate [ProAir HFA] 90 mcg/actuation HFA aerosol inhaler 2 puff Inhalation QID PRN (Reason: bronchospasm) Qty: 8.5 4RF estradiol [Vagifem] 10 mcg tablet 10 mcg VG DAILY Qty: 24 4RF Rx Instructions: use one tab in vagina at bedtime twice weekly multivitamin 1 EACH tablet 1 ea PO DAILY cetirizine [Zyrtec] 10 MG tablet 10 mg PO Q12H PRN PRN alprazolam 0.5 mg tablet 0.5 mg PO QHS PRN (Reason: sleep) Qty: 90 3RF Discharge Instructions Additional Instructions: please drive directly to [facility] and present to the emergency department you have been accepted for transfer by Dr Trujillo
== END 2023-08-05 08:33 | disposition short-term general hospital (02) ==
PROVIDERS: Emergency Medicine; Emergency Provider Emergency Medicine; PCP Family Medicine
DX: R10.32 Left lower quadrant pain (principal); R11.0 Nausea; R19.7 Diarrhea, unspecified
CPT/HCPCS: 00123; 80053; 83690; 96374; 96375; 99284; 74019; 81003; 81015; 85025; J2270; J2405

== ENCOUNTER 2024-02-21 00:35 | Outpatient (CLI) | payer MEDICARE, SELFPAY ==
--- NOTE | 2024-02-21 07:00 | DI.RAD_ITS ---
Exam(s) XR LUMBAR SPINE COMPLETE EXAM: XR LUMBAR SPINE COMPLETE CLINICAL HISTORY: LOW BACK PAIN,M54.50. TECHNIQUE: 2D digital imaging was performed of the lumbar spine. Five images were obtained. AP, la teral, right oblique, left oblique and L5-S1 spot views were obtained. COMPARISON: CR XR DEXA BONE DENSITY W/WO PAULA from 05/03/2020 CR XR ABDOMEN FLAT UPRIGHT from 08/05/2023 FINDINGS: BONES: No fracture or destructive lesion. Vertebral bodies are unremarkable. No facet hypertrophy jules ntified. DISKS: Intervertebral disc spaces are maintained. ALIGNMENT: Lumbar spinal alignment is within normal limits. No spondylolysis or spondylolisthesis. SOFT TISSUE: Normal. IMPRESSION: No significant degenerative changes are seen in the lumbar spine. If there are radicular concerns, a n MRI of the lumbar spine should be obtained. DATA REPOSITORY: RADIATION DOSE DELIVERED:
--- NOTE | 2024-02-21 07:00 | DI.RAD_ITS ---
Exam(s) XR HIP LT COMPLETE AP PELVIS EXAM: XR HIP LT COMPLETE AP PELVIS CLINICAL HISTORY: left hip pain,M25.552. TECHNIQUE: 2D digital imaging was performed of the left hip. Two views were obtained. AP pelvis an d lateral left hip views were obtained. COMPARISON: CR XR ABDOMEN FLAT UPRIGHT from 08/05/2023 FINDINGS: BONES: No acute fracture is present. No bony destructive lesion is seen. JOINTS: No dislocation present. The hips are well maintained. The sacroiliac joints are unremarkable as is the symphysis pubis. SOFT TISSUE: Normal. IMPRESSION: Unremarkable radiographs of the left hip. DATA REPOSITORY: RADIATION DOSE DELIVERED:
== END 2024-02-21 00:55 ==
LOC: DI 00:35
PROVIDERS: PCP Family Medicine; Visit Provider Family Medicine
DX: M25.552 Pain in left hip (principal); G89.29 Other chronic pain
CPT/HCPCS: 72110; 73502

== ENCOUNTER → 2024-07-16 08:02 | Outpatient (BNVA) | payer MEDICARE, SELFPAY | PROVIDERS: PCP Family Medicine; Referring Provider Family Medicine; Visit Provider Nurse Practitioner Adult Health | DX: G43.109 Migraine with aura, not intractable, without status migrainosus (principal) | CPT/HCPCS: 99215; G2212 ==

== ENCOUNTER 2024-07-17 00:40 | Outpatient (CLI) | payer MEDICARE, SELFPAY ==
--- NOTE | 2024-07-17 07:30 | DI.MRI_ITS ---
Exam(s) MR BRAIN WO/W EXAM: MR BRAIN WO/W CLINICAL HISTORY: 4 migraines a week,increased frequency severit TECHNIQUE: Multiplanar multisequence MRI of the brain was performed. Both noninfused and contrast i nfused sequences were performed. IV Contrast injected was 13 cc Dotarem. COMPARISON: No exams were available for comparison FINDINGS: CEREBRAL PARENCHYMA: No evidence of intracranial hemorrhage, mass effect nor shift of midline structu re. No extraaxial fluid collections. Ventricles are not enlarged nor shifted. There is no significant focal signal abnormality in the cerebellar hemispheres nor within the adria, m idbrain, and thalami. There is no abnormal signal abnormality in the periventricular white matter. DWI: No areas of restricted diffusion to suggest acute ischemic event. SWI: No microhemorrhages evident. There are no ring enhancing lesions in the brain. There is no abnormal meningeal enhancement. No evidence of venous sinus thrombosis PITUITARY GLAND: No mass nor parasellar abnormality. No obvious abnormality in the cavernous sinuses. FLOW VOIDS: The expected flow void are noted. No evidence of obvious aneurysm nor obvious vascular ma lformation. Left vertebral artery is dominant. PARANASAL SINUSES: Frontal sinuses are not developed. The other paranasal sinuses appear unremarkabl e. No mastoid effusions. ORBITS: No obvious abnormal findings. IMPRESSION: 1. No significant intracranial findings on this MRI scan of the brain. 2. No abnormal enhancing intracranial findings. There are no ring enhancing lesions in the brain and there is no abnormal meningeal enhancement. 3. There is no abnormal periventricular signal abnormality, as is sometimes seen in long time migrai ne sufferers. DATA REPOSITORY:
[2024-07-17] MEDS: Gadoterate meglumine 20 ML SYRINGE 13 ML IVP (12:16)
[2024-07-17] MEDS: Normal Saline Flush 10 ML SYR IVP (12:17)
== END 2024-07-17 01:00 ==
LOC: DI 00:40
PROVIDERS: PCP Family Medicine; Visit Provider Nurse Practitioner Family
DX: G43.909 Migraine, unspecified, not intractable, without status migrainosus (principal)
CPT/HCPCS: 70553

== ENCOUNTER → 2024-09-21 08:29 | Outpatient (BNVA) | payer MEDICARE, SELFPAY | PROVIDERS: PCP Family Medicine; Referring Provider Family Medicine; Visit Provider Nurse Practitioner Adult Health | DX: G43.109 Migraine with aura, not intractable, without status migrainosus (principal) | CPT/HCPCS: 99214 ==

== ENCOUNTER 2024-11-30 13:51 | Outpatient (REF) | payer MEDICARE, SELFPAY ==
[2024-11-30 21:12] LABS: HCT 45.2 % (36.0-46.0); HGB 14.7 g/dL (11.2-15.7); MCH 31.5 pg (27.0-33.0); MCHC 32.5 % (32.0-36.0); MCV 97 fL (80-95); MPV 10.9 fL (8.0-11.0); Platelet Count 227 10^3/uL (130-400); RBC 4.67 10^6/uL (3.93-5.22); RDW 12.2 % (11.7-14.6); RDW-SD 43.7 fL; WBC 6.09 10^3/uL (4.4-10.8)
[2024-11-30 21:40] LABS: COMMENT (LAB VIEW ONLY) 42.28 mg/dL; Microalb ug/mg Crea 7.6 ug/mg Cr
[2024-11-30 21:45] LABS: ALT 45 U/L (14-59); AST 33 U/L (15-37); Albumin 4.1 g/dL (3.4-5.0); Alkaline Phosphatase 94 U/L (46-116); Anion Gap 8.9 mmol/L (3-11); BUN 12 mg/dL (7-18); Bilirubin, Total 0.7 mg/dL (0.2-1.0); CO2 29.1 mmol/L (21.0-32.0); Calcium 9.2 mg/dL (8.5-10.1); Calculated LDL 177 mg/dL (<100); Chloride 102 mmol/L (98-107); Cholesterol 267 mg/dL (<200); Estimated GFR 78.24 (mL/min/1.73m2); Glucose 86 mg/dL (74-106); HDL Cholesterol 60 mg/dL (>or=50); Potassium 4.3 mmol/L (3.5-5.1); Sodium 140 mmol/L (136-145); TSH 2.97 uIU/mL (0.36-3.74); Total Protein 7.8 g/dL (6.4-8.2); Triglyceride 150 mg/dL (<150); Vitamin D 25 Total 39 ng/mL (30-100)
== END 2024-11-30 13:52 | disposition home or self-care (01) ==
LOC: NCHCN 13:51
DX: Z13.29 Encounter for screening for other suspected endocrine disorder (principal); K57.92 Diverticulitis of intestine, part unspecified, without perforation or abscess without bleeding; I10 Essential (primary) hypertension; N18.31 Chronic kidney disease, stage 3a; Z13.21 Encounter for screening for nutritional disorder
CPT/HCPCS: 80053; 80061; 82306; 85027; 82043; 82570; 84443

== ENCOUNTER 2024-12-08 01:05 | Outpatient (CLI) | payer MEDICARE, SELFPAY ==
--- NOTE | 2024-12-08 | DI.MAMMO_ITS ---
Exam(s) MAMMO SCREENING EXAM: MAMMO SCREENING CLINICAL HISTORY: SCREENING MAMMO Z12.31. TECHNIQUE: Bilateral full field digital CC and MLO mammographic images were obtained with 3D tomosynthesis and utilizing computer aided detection (CAD). COMPARISON: Prior mammograms were reviewed. FINDINGS: There has been no significant change in the appearance and distribution of the fibroglandular tissue. There are no new spiculated masses nor malignant appearing microcalcification groups. There is no significant architectural distortion nor skin thickening-retraction. IMPRESSION: No radiographic evidence of malignancy. BI-RADS Category 1 - Negative Breast Density - Category B - There are scattered areas of fibroglandular density. Breast density Category C or D implies that the patient has dense breast tissue. Dense breast tissue can make it harder to find cancer on a mammogram. Dense breast tissue is also associated with an increased risk of breast cancer. This information about the result of the mammogram report was provided to the patient to raise their awareness. Use this report when you speak with the patient about their risks for breast cancer, which includes their family history. At that time, you may recommend additional screening tests (Ultrasound or MRI) as these tests may add significant information. A negative radiographic report should not delay biopsy if a dominant or clinically suspicious mass is present. Up to ten percent of cancers are not identified on mammography. A negative report may reinforce clinical impression. Adenosis and dense breasts may obscure an underlying neoplasm. False positive reports average 6 to 10%. Patient will receive a letter notifying them of these results.
== END 2024-12-08 01:25 ==
DX: Z12.31 Encounter for screening mammogram for malignant neoplasm of breast (principal)
CPT/HCPCS: 77063; 77067

== ENCOUNTER 2024-12-30 10:35 | Outpatient (REF) | payer MEDICARE, SELFPAY ==
[2024-12-30 15:04] LABS: Anion Gap 7.2 mmol/L (3-11); BUN 14 mg/dL (9-23); CO2 28.8 mmol/L (20.0-31.0); Calcium 8.6 mg/dL (8.3-10.6); Chloride 107 mmol/L (98-107); Glucose 77 mg/dL (74-106); Potassium 4.1 mmol/L (3.5-5.1); Sodium 143 mmol/L (136-145)
[2024-12-30 15:07] LABS: Folate 15.4 ng/mL (>5.38); Vitamin B12 189 pg/mL (211-911)
== END 2024-12-30 10:36 | disposition home or self-care (01) ==
LOC: NCHCN 10:35
DX: D64.9 Anemia, unspecified (principal); I10 Essential (primary) hypertension
CPT/HCPCS: 80048; 82607; 82746